=== PATIENT | male | born 1955 ===

== ENCOUNTER 2017-05-09 13:49 | Emergency (ER) | payer OTHER ==
[2017-05-09 14:18] VITALS: BP 136/76; PULSE 58; RESP 18; TEMP 98; O2SAT 96
--- NOTE | 2017-05-09 14:21 | C.PDOC ---
History Of Present Illness 61 year old male is brought to the ED by ambulance for evaluation of a possible narcotic intoxication. No EMS present for history. Patient states he is asymptomatic and wishes to be discharged home. Patient denies suicidal/ homicidal ideation and has no complaints at this time. Time Seen by Provider: 05/09/17 14:01 Chief Complaint (Nursing): Substance Abuse History Per: Patient History/Exam Limitations: no limitations Onset/Duration Of Symptoms: Hrs Current Symptoms Are (Timing): Still Present Suicide/Self Injury Attempted (Context): None Modifying Factor(s): Narcotics Associated Symptoms: denies: Suicidal Thoughts, Suicidal Plan Involuntary Hold By: None Recent travel outside of the [place]: No Additional History Per: Patient Past Medical History Reviewed: Historical Data, Nursing Documentation, Vital Signs Vital Signs: Last Vital Signs Temp 98.0 F 05/09/17 14:17 Pulse 58 L 05/09/17 14:17 Resp 18 05/09/17 14:17 BP 136/76 05/09/17 14:17 Pulse Ox 96 05/09/17 14:27 - Medical History PMH: No Chronic Diseases Denies: Chronic Kidney Disease Surgical History: No Surg Hx Family History: States: Unknown Family Hx - Social History Hx Alcohol Use: Yes Hx Substance Use: Yes - Immunization History Hx Tetanus Toxoid Vaccination: No Hx Influenza Vaccination: No Hx Pneumococcal Vaccination: No Review Of Systems Psych: Positive for: Other (narcotic intoxication ). Negative for: Suicidal ideation Physical Exam - Physical Exam Appears: Non-toxic, No Acute Distress Skin: Normal Color, Warm, Dry Eye(s): bilateral: Normal Inspection Oral Mucosa: Moist Chest: Symmetrical, No Deformity Respiratory: No Accessory Muscle Use Extremity: Normal ROM, Capillary Refill (less than 2 seconds ) Neurological/Psych: Normal Speech, Normal Cognition, Other (no signs/symptoms of acute intoxication ) Gait: Steady Additional Physical Exam Comments: patient refusing further evaluation ED Course And Treatment O2 Sat by Pulse Oximetry: 96 (on RA) Pulse Ox Interpretation: Normal Disposition Counseled Patient/Family Regarding: Studies Performed, Diagnosis - Disposition Referrals: [facility] [Outside] [facility] [Outside] Disposition: HOME/ ROUTINE Disposition Time: 14:32 Condition: GOOD Instructions: Opioid Use Disorder Forms: [employer] (Icelandic) - Clinical Impression Clinical Impression: Opioid abuse - Scribe Statement The provider has reviewed the documentation as recorded by the Scribe (Joellen Plaza) Provider Attestation: All medical record entries made by the Scribe were at my direction and personally dictated by me. I have reviewed the chart and agree that the record accurately reflects my personal performance of the history, physical exam, medical decision making, and the department course for this patient. I have also personally directed, reviewed, and agree with the discharge instructions and disposition.
== END 2017-05-09 15:01 | disposition home or self-care (01) ==
LOC: C.ER 13:49
DX: F11.10 Opioid abuse, uncomplicated (principal)

== ENCOUNTER 2017-06-18 07:58 | Emergency (ER) | payer OTHER ==
[2017-06-18 08:07] VITALS: BP 168/100; PULSE 80; RESP 18; TEMP 98.2; O2SAT 94
--- NOTE | 2017-06-18 08:14 | C.PDOC ---
History Of Present Illness 62-year-old male, presents to the emergency department requesting detox from Heroin. Patient states he snorts 7-8 bags daily, and last use was last night. Denies nausea/vomiting, SI/HI, chest pain or shortness of breath. No other complaints at this time. Time Seen by Provider: 06/18/17 08:07 Chief Complaint (Nursing): Substance Abuse History Per: Patient History/Exam Limitations: no limitations Past Medical History Reviewed: Historical Data, Nursing Documentation, Vital Signs Vital Signs: Last Vital Signs Temp 98.2 F 06/18/17 07:58 Pulse 80 06/18/17 07:58 Resp 18 06/18/17 07:58 BP 168/100 H 06/18/17 07:58 Pulse Ox 94 L 06/18/17 18:15 - Medical History PMH: Denies: Chronic Kidney Disease Family History: States: No Known Family Hx - Social History Hx Alcohol Use: Yes Hx Substance Use: Yes - Immunization History Hx Tetanus Toxoid Vaccination: No Hx Influenza Vaccination: No Hx Pneumococcal Vaccination: No Review Of Systems Constitutional: Negative for: Fever Cardiovascular: Negative for: Chest Pain Respiratory: Negative for: Shortness of Breath Gastrointestinal: Negative for: Vomiting Musculoskeletal: Negative for: Neck Pain, Back Pain Skin: Negative for: Rash Neurological: Negative for: Weakness, Numbness Psych: Negative for: Depression, Suicidal ideation Physical Exam - Physical Exam Appears: Non-toxic, No Acute Distress Skin: Normal Color, Warm, Dry, No Rash Head: Normacephalic Eye(s): bilateral: PERRL Nose: Normal Oral Mucosa: Moist Lips: Normal Appearing Neck: Normal ROM Cardiovascular: Rhythm Regular, No Murmur Respiratory: Normal Breath Sounds, No Accessory Muscle Use Extremity: Normal ROM Neurological/Psych: Oriented x3, Normal Speech ED Course And Treatment O2 Sat by Pulse Oximetry: 94 (RA) Pulse Ox Interpretation: Normal Progress Note: Case discussed with crisis, no detox beds available. Patient will be educated on detox pre-screen process and given a list of other detox programs. He is agreeable with plan. All questions answered. Reassessment Condition: Unchanged Disposition Counseled Patient/Family Regarding: Studies Performed - Disposition Referrals: [facility] [Outside] [facility] [Outside] [facility] [Outside] Disposition: HOME/ ROUTINE Disposition Time: 08:20 Condition: STABLE Additional Instructions: Follow up with outpatient services provided by Crisis team Instructions: Drug Abuse and Drug Addiction (DC) Forms: [email or web address] (Nigerian) - Clinical Impression Clinical Impression: Drug abuse - Scribe Statement The provider has reviewed the documentation as recorded by the Scribe (Venancio Awad) All medical record entries made by the Scribe were at my direction and personally dictated by me. I have reviewed the chart and agree that the record accurately reflects my personal performance of the history, physical exam, medical decision making, and the department course for this patient. I have also personally directed, reviewed, and agree with the discharge instructions and disposition.
== END 2017-06-18 08:22 | disposition home or self-care (01) ==
LOC: C.ER 07:58
DX: F19.10 Other psychoactive substance abuse, uncomplicated (principal)